=== PATIENT | male | born 1985 | race Caucasian/White ===

== ENCOUNTER 2023-11-21 15:51 | Emergency (ER) | payer OTHER, SELFPAY ==
--- NOTE | ~2023-11-21 | CT_ITS ---
EXAMINATION: CT abdomen pelvis w con DATE: 11/21/2023 18:01 INDICATION: Left lower quadrant abdominal tenderness. Dysuria. TECHNIQUE: Computed tomography (CT) of the abdomen and pelvis was performed with 100 mL Omnipaque 350 intravenous contrast. Automated exposure control and iterative reconstruction technique were employe d. The dose-length product was 1623.17 mGy-cm. COMPARISON: None. FINDINGS: The visualized portions of the lung bases are clear without pneumonia or pleural effusion. The heart size is normal. No pericardial effusion. The liver, gallbladder, spleen, pancreas, adrenal glands, and kidneys are normal. There are scattered diverticula in the colon. There is fat stranding around a diverticulum of sigmoid colon, consistent with diverticulitis. There are no dilated loops of bowel. The appendix is normal. There are no pathologically enlarged lymph nodes. There is no free in traperitoneal fluid. There is mild thoracic and lumbar spondylosis. There is mild chronic anterior we dging of multiple vertebral bodies. IMPRESSION: 1. Acute sigmoid diverticulitis. No perforation or abscess. Reviewed, dictated and finalized at location E.
[2023-11-21 16:04] VITALS: BP 143/72; PULSE 90; RESP 20; TEMP 36.6; O2SAT 99
--- NOTE | 2023-11-21 17:07 | ED.GENADULT ---
HPI - General Adult General Chief complaint: Urogenital-Male Stated complaint: kidney stone Time Seen by Provider: 11/21/23 16:58 Source: patient Mode of arrival: ambulatory Limitations: no limitations History of Present Illness HPI narrative: this is a 38-year-old otherwise healthy male who presents to the ED with chief complaint of left lower quadrant abdominal pain beginning 2 days ago and worsened today. Patient reports that the pain has primarily been on the left side of the abdomen. He points to the left lower quadrant and states that on occasion it radiates up into the left upper quadrant. Reports consistent dull ache that becomes sharp intermittently. He feels it is worse with certain movements or with exertion. He does feel like the pain is similar to when he is constipated bowel movements have been fairly regular. Denies any known injury. Denies any swelling or bulge. Denies problems with bowel movements, urination, fevers, chills, nausea, vomiting, diarrhea, chest pain, shortness of breath or recent illness. Related Data Allergies Allergy/AdvReac Type Severity Reaction Status Date / Time No Known Allergies Allergy Verified 11/21/23 18:23 Review of Systems Review of Systems: All systems as dictated in HPI Exam Narrative: GENERAL: Well-appearing, well-nourished, and in no acute distress. HEAD: Normocephalic, atraumatic. EYES: PERRLA and EOMI. ENT: Nares clear, no rhinorrhea or epistaxis. Mucous membranes moist. Oropharynx without tonsillar hypertrophy exudate or other lesions. NECK: Supple. No adenopathy or masses. CHEST: No respiratory distress. Clear to auscultation. No wheezes rales or rhonchi HEART: Regular rate and rhythm. No murmur heard. Normal peripheral pulses. ABDOMEN: obese abdomen. Mild left lower quadrant tenderness. Soft, otherwise nontender, nondistended, normal active bowel sounds. negative flank tenderness bilaterally. Negative peritoneal signs MSK: Normal range of motion. No edema. SKIN: Warm, dry, no rash. NEURO: Alert and oriented x3. No focal deficits. PSYCH: Normal mood and affect. Course Course Emergency Course: Re-evaluation 183: Patient is feeling better with Toradol. Instructed on diagnosis of diverticulitis. He feels comfortable with going home. Vital Signs Vital signs: Vital Signs Oxygen Delivery Room Air 11/21/23 15:54 Temperature 97.8 F 11/21/23 16:04 Pulse Rate 78 11/21/23 19:10 Respiratory Rate 18 11/21/23 19:10 Blood Pressure 146/86 H 11/21/23 19:10 Pulse Oximetry 100 11/21/23 19:10 Oxygen Delivery Room Air 11/21/23 15:54 Medical Decision Making MDM Narrative Medical decision making narrative: this is a 38-year-old male who presents to the ED with chief complaint of left lower quadrant pain beginning 2 days ago. Vitals are normal. Exam shows mild left lower quadrant tenderness but otherwise abdominal exam is benign. No flank pain or tenderness. Lab work is shows elevated white count of 15.6. CMP grossly unremarkable. Urinalysis surprisingly shows nitrite positive urine but otherwise no abnormalities. Urine culture is pending, however do not feel that a UTIs consistent patient's presentation. CT abdomen pelvis with IV contrast: 1. Acute sigmoid diverticulitis. No perforation or abscess.. Overall presentation is most consistent with diverticulitis. His pain is controlled with Toradol here. Admission was offered but he prefers to go home. He will be given prescriptions for Zofran, with Augmentin, Toradol, [place]. Diverticulitis diet discussed. Pt will be discharged in stable condition. Return precautions given and supportive measures discussed. Pt is understanding and agreeable with plan for discharge and follow-up with PCP. Differential Diagnosis Differential Diagnosis: ureteral stone, diverticulitis, appendicitis, cystitis, SBO Vital Signs Vital Signs: Vital Signs Oxygen Delivery Room
[2023-11-21 17:33] LABS: Basophils Absolute Auto 0.1 K/mm3 (0.0-0.1); Basophils Percent Auto 0.4 % (0.2-1.2); Eosinophils Absolute Auto 0.4 K/mm3 (0-0.3); Eosinophils Percent Auto 2.4 % (0-4.4); Hematocrit 44.5 % (42.0-52.0); Immature Granulocyte Absolute 0.06 K/mm3 (0.00-0.031); Immature Granulocyte Percent A 0.4 % (0-0.5); Lymphocytes Absolute Auto 3.06 K/mm3 (0.9-3.2); Lymphocytes Percent Auto 19.6 % (18.3-44.2); Mean Corpuscular HGB Conc 33.7 g/dl (32-36); Mean Corpuscular Hemoglobin 29.4 pg (26-34); Mean Corpuscular Volume 87.1 fl (80-100); Mean Platelet Volume 9.2 fl (7.4-10.4); Monocytes Absolute Auto 1.5 K/mm3 (0.1-0.6); Monocytes Percent Auto 9.3 % (2.6-8.5); Neutrophils Absolute Auto 10.6 K/mm3 (1.3-6.7); Neutrophils Percent Auto 67.9 % (45.5-73.1); Platelet Count Result 286 k/mm3 (150-375); Red Blood Count 5.11 M/mm3 (4.6-6.20); Red Cell Distribution Width 12.1 % (11.5-14.5); White Blood Count 15.6 K/mm3 (4.5-10.0)
[2023-11-21 17:51] LABS: Alanine Aminotransferase 78 U/L (6-50); Albumin Level 4.5 g/dL (3.5-5.1); Alkaline Phosphatase 83 U/L (38-126); Anion Gap 5 mmol/L (4-12); Aspartate Amino Transferase 33 U/L (17-59); Bilirubin,Total 0.7 mg/dL (0.2-1.3); Blood Urea Nitrogen 14 mg/dL (9-20); Calcium 9.3 mg/dL (8.4-10.2); Carbon Dioxide 29 mmol/L (22-30); Chloride 102 mmol/L (98-107); Estimated CRCL calculation 150 ml/min; Estimated Glomerular Filt Rate > 60; Glucose 92 mg/dL (65-110); Lipase 61 U/L (23-300); Potassium 4.4 mmol/L (3.4-5.0); Sodium 136 mmol/L (137-145)
[2023-11-21 18:06] LABS: Appearance Urine Clear (Clear); Bacteria Urine None Seen /hpf; Bilirubin Urine Negative (Negative); Blood Urine Negative (Negative); Color Urine Dark Yellow (Yellow); Glucose Urine UA Negative (Negative); Ketones Urine Trace mg/dL (Negative); Leukocyte Esterase Ur Negative LEU/UL (Negative); Need Manual Microscopic Reviewed; Nitrate Urine Positive (Negative); Non Pathogenic Casts 0-2; Protein Urine Negative (Negative); RBC Urine 0-2 /hpf (0-2); Specific Grav Ur 1.028 (1.001-1.035); Squamous Epithelial Cell Urine None Seen /hpf (Few); WBC Urine 0-5 /hpf (0-3)
[2023-11-21 18:12] LABS: Add Urine Microscopic? YES
[2023-11-21] MEDS: KETOROLAC 30 MG/ML VIAL (*BKC) IV PUSH (18:24)
[2023-11-21 18:29] VITALS: BP 141/78; PULSE 78; RESP 19; O2SAT 98
[2023-11-21 19:10] VITALS: BP 146/86; PULSE 78; RESP 18; O2SAT 100
== END 2023-11-21 19:11 | disposition home or self-care (01) ==
PROVIDERS: Emergency Provider Physician Assistant
DX: K57.92 Diverticulitis of intestine, part unspecified, without perforation or abscess without bleeding (principal)
CPT/HCPCS: 36415; 74177; 80053; 81001; 83690; 85025; 96374; 99284; J1885; Q9967